=== PATIENT | female | born 1990 | race African-American/Black ===

== ENCOUNTER 2017-02-15 12:50 | Emergency (ER) | payer MEDICAID ==
[~2017-02-15] VITALS: Ht 154.9 cm; Wt 70.0 kg
[2017-02-15] MEDS ORDERED: LIDOCAINE HCL 1% 20ML VIAL (Pyxis) INJ ONE (16:14)
[2017-02-15] MEDS ORDERED: LIDOCAINE HCL 1% 20ML VIAL (Pyxis) INJ INFIL ONE (16:15)
[2017-02-15 17:30] VITALS: BP 124/77
[2017-02-15] MEDS ORDERED: BACITRACIN ZINC OINT UDPKT TOP ONE (17:30)
== END 2017-02-15 17:30 | disposition home or self-care (01) ==
LOC: ER 13:17
DX: L02.224 Furuncle of groin (principal); F17.200 Nicotine dependence, unspecified, uncomplicated
CPT/HCPCS: 10060; 99283; J3490

== ENCOUNTER 2017-04-25 06:39 | Emergency (ER) | payer MEDICAID, OTHER ==
[~2017-04-25] VITALS: Ht 152.4 cm; Wt 70.0 kg
[2017-04-25 09:58] VITALS: BP 111/76
[2017-04-25 10:10] LABS: CLARITY URINE CLEAR (CLEAR); COLOR URINE DARK YELLOW (YELLOW); KETONES URINE NEGATIVE (NEGATIVE); LEUKOCYTE ESTERASE URINE 2+ (NEGATIVE); NITRITE URINE POSITIVE (NEGATIVE); OCCULT BLOOD URINE 2+ (NEGATIVE); PH URINE 6.5 (4.5-8.0); PROTEIN URINE TRACE (NEGATIVE); SPECIFIC GRAVITY URINE 1.021 (1.005-1.030)
[2017-04-25] MEDS ORDERED: ACETAMINOPHEN 500MG TABLET PO ONE (10:30)
[2017-04-25 11:11] LABS: BASOPHILS % 0.5 % (0.0-2.0); EOSINOPHILS % 0.4 % (0.0-5.0); HEMATOCRIT. 43.1 % (36.0-48.0); HEMOGLOBIN. 14.1 g/dL (12.0-16.0); LYMPHOCYTES % 17.6 % (20.0-50.0); MEAN CORPUSCULAR HEMOGLOBIN 30.9 pg (28.0-32.0); MEAN CORPUSCULAR VOLUME 94.7 fL (81.0-99.0); MEAN PLATELET VOLUME 9.3 fl (7.4-10.4); MONOCYTES % 7.3 % (2.0-8.0); NEUTROPHILS % 74.2 % (40.0-76.0); PLATELET 226 x1000/uL (130-400); RED BLOOD CELL COUNT 4.56 mill/uL (4.2-5.4); RED CELL DISTRIBUTION WIDTH 14.4 % (11.6-14.6)
[2017-04-25 11:18] LABS: CARBON DIOXIDE 28 mEq/L (21-32); CHLORIDE 105 mEq/L (98-107)
== END 2017-04-25 12:12 | disposition home or self-care (01) ==
LOC: ER 07:07
DX: N39.0 Urinary tract infection, site not specified (principal); J06.9 Acute upper respiratory infection, unspecified; Z98.890 Other specified postprocedural states
CPT/HCPCS: 36415; 80053; 81001; 81025; 85025; 99284